=== PATIENT | male | born 1960 | race Two or more races ===

== ENCOUNTER 2019-06-25 18:11 | Inpatient (IN) | payer MEDICARE, OTHER ==
[~2019-06-25] VITALS: Ht 180.3 cm; Wt 72.6 kg
[2019-06-26 02:20] VITALS: BP 133/77
[2019-06-26] MEDS ORDERED: MAG HYDROX/AL HYDROX/SIMETH 30 ML UDC PO PRN (02:30)
[2019-06-26] MEDS ORDERED: MAGNESIUM HYDROXIDE 30 ML UDC PO PRN (02:30)
--- NOTE | 2019-06-26 02:35 | NUR ---
[employer] SUPERINTENDENT NOTES PATIENT IS A 58 YEAR OLD MALE ADMITTED FROM [facility] TO [facility] ER TO GPS UNIT, PLACED ON A 5150 HOLD FOR DANGER TO HIMSELF/GD. PER HOLD, PATIENT PT STATED," I AM FEELING SUICIDAL". DENIED ANY PLAN. PT. WAS NOT ORIENTED TO TIME, PLACE & SITUATION. PT. WAS OBSERVED LAUGHING FOR NO REASON DURING INTERVIEW. PT. OFTEN ASKING INTERVIEWER," DO YOU HEAR HIM." BASED ON OBSERVATION IT WAS CLEAR THAT PT. IS CURRENTLY DANGER TO HIMSELF. PT. IS ALSO GRAVELY DISABLED AT THIS TIME DUE TO HIS MENTAL ILLNESS. UPON FACE TO FACE ASSESSMENT, PATIENT IS ALERT AND ORIENTED X 2-3, FORGETFUL, ANXIOUS, PARANOID, DISORGANIZED. DENIES SI/HI/ AT THIS TIME. COOPERATIVE/UNCOOPERATIVE. FLAT AFFECT. DEPRESSED. VSS. NO ACUTE DISTRESS NOTED. NO C/O PAIN VERBALIZED. SKIN CHECK COMPLETE, PHOTOS TAKEN, PLACED IN CHART. PT. IS UNDER THE PSYCHIATRIC CARE OF DR. RADER & THE MEDICAL CARE OF DR. ALVAREZ. PT'S BELONGINGS WERE INVENTORIED & CHECKED FOR CONTRABAND. PT. EDUCATED ON THE USE OF CALL BENITES. BED SIDE RAILS ARE UP X2 FOR SAFETY. UNABLE TO SIGN CONSENTS DUE TO PARANOIA. SISTER QUIQUE FROM [place] CALLED & MADE AWARE OF THE ADMISSION. PATIENT IS AMBULATORY/STEADY. PATIENT'S RIGHTS HANDBOOK GIVEN. MADE AWARE. ALL NEEDS ATTENDED TO & MET. SAFETY MEASURES MAINTAINED. BED ALARM ON, BED IN LOW/LOCKED POSITION. WILL CONTINUE TO MONITOR PATIENT Q15 MINUTES FOR SAFETY AND BEHAVIOR.
[2019-06-26] MEDS ORDERED: BLOOD SUGAR DIAGNOSTIC 1 EACH STRIP IN ONE (03:00)
[2019-06-26] MEDS ORDERED: ASPI-1169 PO (03:06)
[2019-06-26] MEDS ORDERED: CLOZ100T32 PO (03:06)
[2019-06-26] MEDS ORDERED: CHOL100062 PO (03:06)
[2019-06-26] MEDS ORDERED: RISP1TAB7 IM (03:06)
[2019-06-26] MEDS ORDERED: DOCU100C36 PO (03:06)
[2019-06-26] MEDS: ACETAMINOPHEN 325 MG TABLET PO PRN (03:25)
--- NOTE | 2019-06-26 03:25 | NUR ---
PRN TYLENOL GIVEN PATIENT C/O HEADACHE & ASKED TO GET TYLENOL. PRN TYLENOL 650 MG GIVEN ORDERED. I WILL CONTINUE TO MONITOR FOR EFFECTIVENESS.
[2019-06-26] MEDS: LORAZEPAM 1 MG TABLET PO PRN ×2 (05:35→12:30)
--- NOTE | 2019-06-26 05:35 | NUR ---
GPS RN NOTE, PATIENT HAS A COMPLAINT OF FEELING ANXIOUS AND IS REQUESTING ATIVAN AT THIS TIME. PATIENT VITAL SIGNS ARE STABLE. GAVE ATIVAN 1 MG PO Q4HR PRN ORDERED. WILL REASSESS FOR ANXIETY AND I WILL CONTINUE TO MONITOR THIS PATIENT.
--- NOTE | 2019-06-26 06:15 | NUR ---
GPS RN NOTE ATTEMPTED TO CALL [facility] AT [phone] TWICE BUT THE AUTOMATED SYSTEM SYAS THAT THIS NUMBER HAS BEEN DISCONNECTED. PATIENT'S SISTER QUIQUE FROM [place] CALLED, SPOKE TO THE PATIENT & IS AWARE OF PT'S ADMISSION TO [facility], GPS UNIT. WILL CONTINUE TO MONITOR THE PATIENT FOR SAFETY & BEHAVIOR.
[2019-06-26 06:55] LABS: BASOPHILS # (AUTO) 0.1 /CMM (0.0-0.2); EOSINOPHILS % (AUTO) 1.7 % (0.0-6.0); HEMATOCRIT 37 % (39-51); HEMOGLOBIN 12.2 g/dL (13.5-17.5); LYMPHOCYTES # (AUTO) 1.4 /CMM (0.8-4.8); LYMPHOCYTES % (AUTO) 13.7 % (20.0-44.0); MEAN CORPUSCULAR HGB CONC 33 g/dl (31.0-36.0); MEAN CORPUSCULAR VOLUME 89 fL (80-96); MONOCYTES # (AUTO) 0.8 /CMM (0.1-1.30); NEUTROPHILS # (AUTO) 7.5 /CMM (1.8-8.9); NEUTROPHILS % (AUTO) 75.6 % (43.0-81.0); PLATELET COUNT (AUTO) 300 /CMM (150-450); RED BLOOD CELL COUNT(AUTO) 4.17 MIL/uL (4.5-6.0); WHITE BLOOD COUNT (AUTO) 9.9 K/uL (4.3-11.0)
[2019-06-26 07:08] LABS: CALCIUM, SERUM 8.7 mg/dL (8.5-10.1); CREATININE 0.9 mg/dL (0.6-1.3); POTASSIUM 4.1 mmol/L (3.5-5.1)
[2019-06-26 08:00] VITALS: BP 127/82
[2019-06-26] MEDS: NICOTINE PATCH (21MG) 21 MG PATCH.TD24 TD SCH (08:03)
[2019-06-26] MEDS ORDERED: BENZ1TAB7 PO (08:32)
[2019-06-26] MEDS ORDERED: ALBU18HF2 INH (08:32)
[2019-06-26] MEDS ORDERED: OLAN20TA3 PO (08:32)
[2019-06-26] MEDS ORDERED: SERT100T PO (08:32)
[2019-06-26] MEDS ORDERED: SIMV-49 PO (08:32)
[2019-06-26] MEDS ORDERED: RISP50DI IM (08:32)
--- NOTE | 2019-06-26 12:30 | NUR ---
RN NOTE- ANXIETY STATED BY PT. ATIVAN 1 MG PO GIVEN. WILL MONITOR
[2019-06-26 16:00] VITALS: BP 125/71
[2019-06-26] MEDS: BENZTROPINE MESYLATE (1 MG) 1 MG TABLET PO SCH (19:50)
[2019-06-26 20:09] VITALS: BP 124/68
--- NOTE | 2019-06-26 21:30 | NUR ---
RN NOTES OFFERED IF HE WANTS TO HAVE SHOWER TOLD HIM THAT THE CUSTOMER SERVICE MANAGER WILL ASSIST HIM IF HE NEEDS HELP. REFUSED AND SAID HE'LL DO IT TOMORROW. RISK AND BENEFITS EXPLAINED. WILL CONTINUE TO MONITOR.
--- NOTE | 2019-06-27 06:30 | NUR ---
RN CLOSING NOTES PATIENT IN BED ALERT AND ORIENTED X 3. VERBALLY RESPONSIVE AND ABLE TO FOLLOW DIRECTIONS. BREATHING REGULAR AND UNLABORED ON ROOM AIR. SLEPT FOR ABOUT 6-8HRS LAST NIGHT. VERBALIZED "I SLEPT GOOD LAST NIGHT". NO EPISODE OF AGITATION OR AGGRESSIVE BEHAVIOR NOTED THE WHOLE SHIFT. REMAINED CALM AND COOPERATIVE. COMPLIANT WITH HIS MEDICATIONS. BED LOW AND LOCKED ON FLAT POSITION. WILL ENDORSE TO MORNING SHIFT FOR [place].
[2019-06-27] MEDS ORDERED: ALBUTEROL FS 2.5 MG/0.5 ML VIAL.NEB NEB PRN (07:35)
[2019-06-27 08:00] VITALS: BP 130/79
[2019-06-27] MEDS: NICOTINE PATCH (21MG) 21 MG PATCH.TD24 TD SCH (08:37)
[2019-06-27] MEDS: BENZTROPINE MESYLATE (1 MG) 1 MG TABLET PO SCH ×3 (08:37→16:55)
[2019-06-27] MEDS: ASPIRIN 81 MG TAB.CHEW PO SCH (08:37)
[2019-06-27] MEDS: ACETAMINOPHEN 325 MG TABLET PO PRN (10:11)
--- NOTE | 2019-06-27 15:21 | NUR ---
Group Note: SW went to patient's room to invite patient to attend today's support group at 1:00pm regarding holiday sensory activity being held in the activities room. Patient presented laying on their bed sleeping. SW attempted to wake patient but pt. was not easily rousable.
[2019-06-27 16:00] VITALS: BP 113/77
[2019-06-27 20:27] VITALS: BP 107/63
[2019-06-27] MEDS: HALOPERIDOL 5 MG TABLET PO SCH (21:47)
[2019-06-27] MEDS: SIMVASTATIN 20 MG TABLET PO SCH (22:10)
[2019-06-27] MEDS: TEMAZEPAM 7.5 MG CAPSULE PO PRN (22:26)
--- NOTE | 2019-06-27 22:27 | NUR ---
GPS RN NOTES: OK C/O UNABLE TO SLEEP. PT STATED, "CAN I HAVE A SLEEPING PILL?" PT VITALS WNL. OFFERED RESTORIL 7.5MG PO PRN ORDERED. PT AGREED. ADMINISTERED MEDICATION. PT TOLERATED WELL CONTINUE TO MONITOR.
[2019-06-27 22:29] VITALS: BP 118/74
[2019-06-28] MEDS: LORAZEPAM 1 MG TABLET PO PRN (01:33)
--- NOTE | 2019-06-28 01:35 | NUR ---
GPS RN NOTES: PT C/O FEELING ANXIOUS. OFFERED ATIVAN 1MG PO PRN ORDERED. PT AGREED TOLERATED MEDICATION WELL. CONTINUE TO MONITOR.
[2019-06-28 08:00] VITALS: BP 106/67
[2019-06-28] MEDS: ASPIRIN 81 MG TAB.CHEW PO SCH (08:55)
[2019-06-28] MEDS: HALOPERIDOL 5 MG TABLET PO SCH ×4 (08:55→16:54)
[2019-06-28] MEDS: BENZTROPINE MESYLATE (1 MG) 1 MG TABLET PO SCH ×3 (08:56→16:54)
[2019-06-28] MEDS: SERTRALINE HCL 50 MG TABLET PO SCH (08:56)
[2019-06-28] MEDS: NICOTINE PATCH (21MG) 21 MG PATCH.TD24 TD SCH (08:56)
--- NOTE | 2019-06-28 11:46 | NUR ---
[facility] Contact: NIELS called [facility] ([phone]) and spoke to Stacie in the Admitting Department to see if their facility had any additional or accurate information on the pt. She provided the SW with the same disconnected number for the pts Person to Notify Pat Dorado. She also provided the same address for the [facility] and [facility] but no other information.
--- NOTE | 2019-06-28 11:46 | NUR ---
Person to Notify Contact: SW called [facility] ([phone]) but the number was disconnected.
--- NOTE | 2019-06-28 11:48 | NUR ---
Initial Discharge Plan: Pt currently resides at a board and care located at [address] [place] [address]. Per pt, he would like to return to the board and care. NIELS will work with the pt and the MD regarding appropriate discharge planning. SW will form a safe and proper discharge.
[2019-06-28 16:00] VITALS: BP 117/88
[2019-06-28 16:40] VITALS: BP 117/88
[2019-06-28 20:39] VITALS: BP 141/59
[2019-06-28] MEDS: SIMVASTATIN 20 MG TABLET PO SCH (21:10)
[2019-06-28] MEDS: TEMAZEPAM 7.5 MG CAPSULE PO PRN (22:44)
--- NOTE | 2019-06-28 22:45 | NUR ---
GPS RN NOTES: ND C/O UNABLE TO SLEEP. PT STATED, "CAN I HAVE A SLEEPING PILL?" OFFERED RESTORIL 7.5MG PO PRN ORDERED. PT AGREED. ADMINISTERED MEDICATION. PT TOLERATED WELL CONTINUE TO MONITOR.
[2019-06-29] MEDS: ACETAMINOPHEN 325 MG TABLET PO PRN (05:39)
--- NOTE | 2019-06-29 05:40 | NUR ---
GPS RN NOTES: PT C/O OF HEADACHE . ASKED PT FROM 0-10 PAIN SCALE. PT STATED, " 3." PT VITALS ARE WNL. OFFERED TYLENOL 650MG PO PRN ORDERED. PT AGREED AND TOLERATED MEDICATION WELL. CONTINUE TO MONITOR.
[2019-06-29 08:00] VITALS: BP 132/77
[2019-06-29] MEDS: BENZTROPINE MESYLATE (1 MG) 1 MG TABLET PO SCH ×3 (08:04→16:12)
[2019-06-29] MEDS: ASPIRIN 81 MG TAB.CHEW PO SCH (08:04)
[2019-06-29] MEDS: SERTRALINE HCL 50 MG TABLET PO SCH (08:05)
[2019-06-29] MEDS: HALOPERIDOL 5 MG TABLET PO SCH ×3 (08:05→16:12)
[2019-06-29] MEDS: NICOTINE PATCH (21MG) 21 MG PATCH.TD24 TD SCH (08:05)
[2019-06-29 16:00] VITALS: BP 111/76
--- NOTE | 2019-06-29 19:35 | NUR ---
GPS/RN OPENING NOTE: RECEIVED PATIENT AMBULATING IN THE HALLWAY, ALERT, ORIENTED X2, CONFUSED. NEEDS REDIRECTIONS. PATIENT IS CALM, COOPERATIVE AND QUIET AT THIS TIME. NO APPARENT DISTRESS NOTED. NO C/O PAIN VERBALIZED. DENIES SI/HI/AVH AT THIS TIME. BED ALARM ON. BED IN LOW LOCKED POSITION. CALL BENITES WITHIN REACH. WILL CONTINUE TO MONITOR Q15 MINS. FOR SAFETY AND BEHAVIOR.
[2019-06-29 20:27] VITALS: BP 105/64
[2019-06-29] MEDS: SIMVASTATIN 20 MG TABLET PO SCH (21:32)
[2019-06-29] MEDS: TEMAZEPAM 7.5 MG CAPSULE PO PRN (21:54)
--- NOTE | 2019-06-29 21:56 | NUR ---
GPS RN NOTE PATIENT IS UNABLE TO SLEEP & REQUESTED TO GET SLEEPING MEDICINE, PRN RESTORIL 7.5 MG PO GIVEN. WILL MONITOR CLOSELY FOR ANY CHANGES.
--- NOTE | 2019-06-29 23:29 | NUR ---
GPS RN NOTE PATIENT ASKED FOR A BAND AID, ASSESSED THE PATIENT & NOTED WITH LEFT UPPER POSTERIOR ARM SCRATCHED SKIN, PT. STATED," I HAVE H/O SKIN CANCER & THIS MIGHT BE FROM THAT, I WAS ITCHING & IT LOOKS LIKE THIS NOW" CLEANED, PAT DRY & APPLIED BAND AID PER PATIENT REQUEST. MD NOTIFIED. WOUND CARE CONSULT ORDERED. WILL MONITOR CLOSELY.
[2019-06-30] MEDS: ACETAMINOPHEN 325 MG TABLET PO PRN (05:21)
--- NOTE | 2019-06-30 05:21 | NUR ---
PRN TYLENOL GIVEN PATIENT C/O NECK PAIN 09/19, WANTED TO TAKE TYLENOL, PRN TYLENOL 650 MG PO GIVEN. WILL MONITOR FOR EFFECTIVENESS.
--- NOTE | 2019-06-30 06:20 | NUR ---
GPS RN NOTE PATIENT NOTED TO BE WALKING IN THE HALLWAY. VERBALIZED THAT HIS NECK PAIN GOT BETTER SINCE TYLENOL WAS GIVEN TO HIM. WILL ENDORSE TO AM RN TO CONTINUE MONITORING FOR ANY CHANGES.
[2019-06-30 08:00] VITALS: BP 105/65
[2019-06-30] MEDS: SERTRALINE HCL 50 MG TABLET PO SCH (08:00)
[2019-06-30] MEDS: BENZTROPINE MESYLATE (1 MG) 1 MG TABLET PO SCH ×3 (08:00→16:36)
[2019-06-30] MEDS: NICOTINE PATCH (21MG) 21 MG PATCH.TD24 TD SCH (08:00)
[2019-06-30] MEDS: HALOPERIDOL 5 MG TABLET PO SCH ×3 (08:00→16:36)
[2019-06-30] MEDS: ASPIRIN 81 MG TAB.CHEW PO SCH (08:00)
--- NOTE | 2019-06-30 11:32 | NUR ---
Family Contact: SW called the pts sister, Deonna ([phone]), and she provided the SW with the accurate contact information for [facility] and [facility] ([phone]).
--- NOTE | 2019-06-30 11:34 | NUR ---
Facility Contact: SW called [facility] ([phone]) and spoke to Ade who stated that the pts bed is secure and that he can return once he is stable.
[2019-06-30 16:00] VITALS: BP 116/73
[2019-06-30] MEDS: LORAZEPAM 1 MG TABLET PO PRN (17:28)
[2019-06-30 20:00] VITALS: BP 114/64
[2019-06-30] MEDS: SIMVASTATIN 20 MG TABLET PO SCH (21:29)
--- NOTE | 2019-06-30 21:30 | NUR ---
GPS RN NOT PATIENT IS ON 40 MG OF LIPITOR AT HS, TOOK OUT ONLY 20 MG (1 TAB) FIRST TIME & THEN ANOTHER 20 MG , 1 TAB WAS TAKEN OUT AGAIN TO GIVE CORRECT DOSE TO THE PATIENT ORDERED BY MD.
[2019-06-30 22:21] VITALS: BP 114/64
--- NOTE | 2019-06-30 22:36 | NUR ---
GPS RN NOTE AROUND 2100, PATIENT REQUESTED TO GET SLEEPING MEDICINE, TOOK OUT RESTORIL 7.5 MG PRN, WHEN OFFERED, PATIENT REFUSED TO TAKE IT, STATED," I DO NOT WANT IT RIGHT NOW, IF I CAN'T SLEEP FOR NEXT FEW HOURS, I WILL TAKE IT." PATIENT HAS BEEN SLEEPING SINCE THEN. WILL MONITOR FOR SLEEPLESSNESS.
[2019-06-30 22:40] VITALS: BP 114/64
[2019-06-30] MEDS: TEMAZEPAM 7.5 MG CAPSULE PO PRN (23:43)
--- NOTE | 2019-06-30 23:46 | NUR ---
GPS RN NOTE PATIENT CAME OUT OF HIS ROOM, STATED THAT HE WOKE UP & UNABLE TO GO BACK TO SLEEP & REQUESTED TO GET SLEEPING MEDICINE. RESTORIL 7.5 MG PO PRN GIVEN. WILL REASSESS FOR EFFECTIVENESS.
[2019-07-01] MEDS: TEMAZEPAM 7.5 MG CAPSULE PO PRN (01:59)
--- NOTE | 2019-07-01 02:02 | NUR ---
RESTORIL REPEATED X 1 PATIENT WOKE UP & UNABLE TO SLEEP & REQUESTED TO GET ANOTHER SLEEPING MEDICINE. RESTORIL 7.5 MG X 1 REPEATED DOSE GIVEN TO THE PATIENT. WILL REASSESS FOR EFFECTIVENESS.
--- NOTE | 2019-07-01 03:03 | NUR ---
GPS RN NOTE PATIENT IS SLEEPING COMFORTABLY AT THIS TIME.
[2019-07-01 08:00] VITALS: BP 102/64
[2019-07-01] MEDS: BENZTROPINE MESYLATE (1 MG) 1 MG TABLET PO SCH ×3 (08:11→16:46)
[2019-07-01] MEDS: HALOPERIDOL 5 MG TABLET PO SCH ×3 (08:11→16:46)
[2019-07-01] MEDS: ASPIRIN 81 MG TAB.CHEW PO SCH (08:11)
[2019-07-01] MEDS: SERTRALINE HCL 50 MG TABLET PO SCH (08:13)
[2019-07-01] MEDS: NICOTINE PATCH (21MG) 21 MG PATCH.TD24 TD SCH (08:15)
--- NOTE | 2019-07-01 11:15 | NUR ---
WOUND CARE CONSULT: PT PRESENTS AMBULATORY AND CONTINENT WITH RAISED LESION TO LEFT UPPER ARM AND VERY LONG TOENAILS, PRESENT ON ADMISSION. DEFER TO MD FOR LESION. RECOMMEND DPM FOR TOENAILS. DR WELLS NOTIFIED OF DPM CONSULT REQUEST. WILL SEE PRN. MD IN AGREEMENT WITH PLAN OF CARE.
[2019-07-01 16:00] VITALS: BP 132/69
--- NOTE | 2019-07-01 19:52 | NUR ---
GPS/RN NOTE: RESTING COMFORTABLY IN BED, EYES CLOSED, RISE AND FALL OF THE CHEST NOTED. NO APPARENT DISTRESS NOTED. ENVIRONMENTAL SAFETY CHECK DONE. 1:1 SITTER AT THE BEDSIDE FOR SAFETY. WILL CONTINUE TO MONITOR Q 15 MINS. TO MAINTAIN SAFETY.
[2019-07-01 20:32] VITALS: BP 120/74
[2019-07-01] MEDS: SIMVASTATIN 20 MG TABLET PO SCH (21:03)
[2019-07-02] MEDS: TEMAZEPAM 7.5 MG CAPSULE PO PRN ×2 (02:53→22:51)
--- NOTE | 2019-07-02 02:53 | NUR ---
GPS/RN NOTE: PATIENT IS HAVING A HARD TIME TO GO BACK TO SLEEP, TEMAZEPAM 7.5 MG CAP PO GIVEN.
[2019-07-02 08:00] VITALS: BP 114/71
[2019-07-02] MEDS: BENZTROPINE MESYLATE (1 MG) 1 MG TABLET PO SCH ×3 (09:51→17:46)
[2019-07-02] MEDS: NICOTINE PATCH (21MG) 21 MG PATCH.TD24 TD SCH (09:51)
[2019-07-02] MEDS: SERTRALINE HCL 50 MG TABLET PO SCH (09:51)
[2019-07-02] MEDS: HALOPERIDOL 5 MG TABLET PO SCH ×3 (09:51→17:46)
[2019-07-02] MEDS: ASPIRIN 81 MG TAB.CHEW PO SCH (09:51)
[2019-07-02 16:00] VITALS: BP 109/68
--- NOTE | 2019-07-02 18:52 | NUR ---
KEEPS TO SELF MOST OF DAY,NO COMPLAINTS AND MED COMPLIANT.
[2019-07-02 20:36] VITALS: BP 99/60
[2019-07-02] MEDS: SIMVASTATIN 20 MG TABLET PO SCH (21:19)
[2019-07-03 08:00] VITALS: BP 106/53
[2019-07-03] MEDS: BENZTROPINE MESYLATE (1 MG) 1 MG TABLET PO SCH ×3 (08:38→16:15)
[2019-07-03] MEDS: NICOTINE PATCH (21MG) 21 MG PATCH.TD24 TD SCH (08:38)
[2019-07-03] MEDS: ASPIRIN 81 MG TAB.CHEW PO SCH (08:38)
[2019-07-03] MEDS: HALOPERIDOL 5 MG TABLET PO SCH ×3 (08:38→16:15)
[2019-07-03] MEDS: SERTRALINE HCL 50 MG TABLET PO SCH (08:38)
[2019-07-03 16:00] VITALS: BP 111/67
[2019-07-03 20:00] VITALS: BP 110/64
[2019-07-03 20:09] VITALS: BP 110/64
[2019-07-03] MEDS: SIMVASTATIN 20 MG TABLET PO SCH (22:19)
[2019-07-03] MEDS: TEMAZEPAM 7.5 MG CAPSULE PO PRN (23:11)
--- NOTE | 2019-07-03 23:13 | NUR ---
PRN RESTORIL GIVEN PATIENT STATED THAT HE IS UNABLE TO SLEEP & WOULD LIKE TO TAKE SLEEPING PILL. PRN RESTORIL 7.5 MG PO GIVEN. WILL REASSESS FOR EFFECTIVENESS.
[2019-07-04 08:00] VITALS: BP 100/58
[2019-07-04] MEDS: NICOTINE PATCH (21MG) 21 MG PATCH.TD24 TD SCH (08:44)
[2019-07-04] MEDS: HALOPERIDOL 5 MG TABLET PO SCH ×3 (08:44→16:45)
[2019-07-04] MEDS: BENZTROPINE MESYLATE (1 MG) 1 MG TABLET PO SCH ×3 (08:44→16:45)
[2019-07-04] MEDS: SERTRALINE HCL 50 MG TABLET PO SCH (08:44)
[2019-07-04] MEDS: ASPIRIN 81 MG TAB.CHEW PO SCH (08:44)
[2019-07-04 16:18] VITALS: BP 121/68
[2019-07-04 20:05] VITALS: BP 102/53
[2019-07-04] MEDS: SIMVASTATIN 20 MG TABLET PO SCH (21:02)
[2019-07-05] MEDS: LORAZEPAM 1 MG TABLET PO PRN (03:38)
--- NOTE | 2019-07-05 03:40 | NUR ---
GPS RN NOTES: PT C/O FEELING ANXIOUS. OFFERED ATIVAN 1MG PO PRN ORDERED. PT AGREED TOLERATED MEDICATION WELL. CONTINUE TO MONITOR.
[2019-07-05 08:00] VITALS: BP 113/67
--- NOTE | 2019-07-05 08:23 | NUR ---
Family Contact: NIELS called the pts sister, Deonna ([phone]), and informed her that the pt is being discharged back to [facility]. NIELS stated that the [facility] does not offer transportation and therefore she can use a service called [facility] and provide her with the rate so that she can provide her card information. She stated that would be acceptable.
--- NOTE | 2019-07-05 08:29 | NUR ---
Facility Contact: NIELS called [facility] and [facility] ([phone]) and spoke to Ade and informed her that the pt is being discharged today and will be returning to the facility. She stated that she wanted to go over any medication changes so the SW listed the current medications that the pt is taking. Ade stated that they will be expecting him back on this day.
[2019-07-05] MEDS: SERTRALINE HCL 50 MG TABLET PO SCH (08:31)
[2019-07-05] MEDS: NICOTINE PATCH (21MG) 21 MG PATCH.TD24 TD SCH (08:31)
[2019-07-05] MEDS: HALOPERIDOL 5 MG TABLET PO SCH ×2 (08:31→12:26)
[2019-07-05] MEDS: BENZTROPINE MESYLATE (1 MG) 1 MG TABLET PO SCH ×2 (08:31→12:26)
[2019-07-05] MEDS: ASPIRIN 81 MG TAB.CHEW PO SCH (08:31)
--- NOTE | 2019-07-05 10:06 | NUR ---
Family Contact: NIELS called the pts sister, Deonna ([phone]), and provided her with the rates for both [employer] and she stated that she wanted to use [employer] instead to transport the pt. NIELS scheduled the pts discharge for 1pm.
--- NOTE | 2019-07-05 12:50 | NUR ---
RN DC NOTE- PT DC TO [facility]IA [facility] TODAY. PT ALERT ORIENTED TO PERSON PLACE TIME AND PURPOSE. DENIES SI HI VH AT TIME OF DC. VALUABLES RETURNED TO PT AND SIGNED FOR. ID [id number] REMOVED AND DOCUMENTATION, AFTERCARE AND ORDERS GIVEN TO PT ON DEPARTURE. ESCORTED OFF HOSPITAL BY STAFF MEMBER .
--- NOTE | 2019-07-05 13:01 | NUR ---
Discharge Note: Pt was discharged back to [facility] located at [address] [place] [address]; ([phone]). Pts sister, Deonna ([phone]), called an [employer] for the pt at 1pm. Upon discharge, the pt appeared to be in a euthymic mood and a calm affect. Pt denied both suicidal and homicidal ideation as well as auditory and visual hallucinations. Pt stated that he was content about being discharged back to his board and care for the holidays. Pt was provided with smoking cessation referrals that are listed below. Pt will be under the care of his psychiatrist, Dr. Strickland, located at [address] [place], [address]; ([phone]); and a fax of records was sent to: [phone]. Pt will also be under the care of his commercial account executive, Dr. Jazmin Monk ([facility]), located at [address] [place] [address]; . Smoking Cessation Referrals: [employer] 800-LUNGUSA [employer] [phone]
== END 2019-07-05 12:50 | disposition home or self-care (01) | DRG 885 ==
LOC: GPS 06-26 00:04
PROVIDERS: ADMIT Psychiatry & Neurology Psychiatry; ATTEND Nurse Practitioner Acute Care
PROC: 0HBRXZZ Excision of Toe Nail, External Approach (ICD-10-PCS; principal; 2019-07-01)
DX: F25.1 Schizoaffective disorder, depressive type (principal); J44.9 Chronic obstructive pulmonary disease, unspecified; B35.1 Tinea unguium; G47.00 Insomnia, unspecified; G62.9 Polyneuropathy, unspecified; M20.42 Other hammer toe(s) (acquired), left foot; M20.41 Other hammer toe(s) (acquired), right foot; Z73.6 Limitation of activities due to disability; F48.2 Pseudobulbar affect; M79.605 Pain in left leg; M79.604 Pain in right leg
CPT/HCPCS: 36415; 80048-TC; 80061-TC; 82962-TC; 85025-TC; 87081-TC